=== PATIENT | female | born 1940 | race Caucasian/White ===

== ENCOUNTER 2019-04-04 21:48 | Inpatient (IN) | payer MEDICARE ==
[~2019-04-04] VITALS: Ht 165.1 cm; Wt 76.9 kg
[2019-04-08 13:52] VITALS: BP 117/75
== END 2019-04-08 19:10 | DRG 40 ==
LOC: ED 22:21 → EDIP 22:49 → 4EST 23:06
PROVIDERS: ADMIT Family Medicine; ATTEND Family Medicine
PROC: 0JH602Z Insertion of Monitoring Device into Chest Subcutaneous Tissue and Fascia, Open Approach (ICD-10-PCS; principal; 2019-04-07)
DX: I63.89 Other cerebral infarction (principal); G93.41 Metabolic encephalopathy; G81.94 Hemiplegia, unspecified affecting left nondominant side; I63.9 Cerebral infarction, unspecified; E66.9 Obesity, unspecified; Z71.3 Dietary counseling and surveillance; E78.5 Hyperlipidemia, unspecified; F17.210 Nicotine dependence, cigarettes, uncomplicated; G47.00 Insomnia, unspecified; I10 Essential (primary) hypertension; K21.9 Gastro-esophageal reflux disease without esophagitis; M06.9 Rheumatoid arthritis, unspecified; R29.705 NIHSS score 5; I65.23 Occlusion and stenosis of bilateral carotid arteries; Z79.02 Long term (current) use of antithrombotics/antiplatelets; Z90.710 Acquired absence of both cervix and uterus; Z96.643 Presence of artificial hip joint, bilateral; Z68.28 Body mass index [BMI] 28.0-28.9, adult
CPT/HCPCS: 33285; 36415; 70551; 80048; 80061; 82040; 84443; 85025; 85610; 85730; 93005; 93306; 93880; 93970; 99285; C1764; G0378; 92523-GN; J2060; J7030